=== PATIENT | male | born 1960 | race African-American/Black ===

== ENCOUNTER 2016-08-22 10:57 | Emergency (ER) | payer OTHER ==
[2016-08-22] VITALS (8 sets, daily range): BP systolic 142–178; BP diastolic 83–111; PULSE 64–80; RESP 16–20; TEMP 98.4; O2SAT 73–95
[~2016-08-22] VITALS: Ht 182.9 cm; Wt 109.0 kg
[~2016-08-22 10:57] MED LIST: ACET300T2 PO; AMLO10 PO; AMLO10TA2 PO; ASPI81TA11 PO; COZA50TA PO; FURO1TAB60 PO; LOSA50TA PO; METO-309 PO; METO50TA PO; PRAV40TA PO; PRAV40TA2 PO; SPIR100T PO
--- NOTE | 2016-08-22 11:22 | PD ---
HPI Chief Complaint: Chest Pain Time Seen by Provider: 11:09 Travel History International Travel<30 days: No Contact w/Intl Traveler<30days: No Traveled to known affect area: No History of Present Illness HPI This is a 55-year-old male who presents to the emergency department with chest pain. The patient has a history of hypertrophic cardiomyopathy with an ejection fraction of 18%. He presents today because he was sitting on the couch and had sudden onset of chest discomfort and shortness of breath, constant , moderate severity, associated with some sweating lasting for about 20 minutes and then subsiding. Currently he is not having any discomfort. I saw the patient on August 14 and he was requesting medication refills. I had case management see him and we provided him with some vouchers, however he only filled 2 of his medications and he did not fill his furosemide. He's not been taking this for several days. He did recently have a long hospitalization during which he had an AICD placed and he had a nuclear stress test which was reassuring in July. PFSH Past Medical History Hx Anticoagulant Therapy: Yes Asthma: Yes (childhood, not severe) Autoimmune Disease: No Blood Disorders: No Heart Rhythm Problems: No Cancer: No Cardiac Catheterization: No Cardiovascular Problems: Yes High Cholesterol: Yes Congestive Heart Failure: No Diabetes: No Diminished Hearing: No Endocrine: No Genitourinary: No Heparin Induced Thrombocytopen: No Hypertension: Yes Immune Disorder: No Musculoskeletal: No Neurologic: No Psychiatric: No Reproductive: No Respiratory: Yes Immunizations Current: Yes Myocardial Infarction: No Sickle Cell Disease: No Tetanus Vaccination: Unknown Past Surgical History Abdominal Surgery: No Cardiac Surgery: Yes (DEFIB 07/2016) Coronary Artery Bypass Graft: No Ear Surgery: No Endocrine Surgery: No Eye Surgery: Yes Genitourinary Surgery: No Thoracic Surgery: No Other Surgery: Yes Family History Family Hypercholesterolemia: Yes Social History Alcohol Use: No Tobacco Use: No Substance Use: No Allergies-Medications (Allergen,Severity, Reaction): Coded Allergies: Lisinopril (Verified Allergy, Severe, 08/22/16) Ceclor (Verified Allergy, Unknown, 08/22/16) Levaquin (Verified Adverse Reaction, Unknown, Dizziness, 08/22/16) Reported Meds & Prescriptions Reported Meds & Active Scripts Active Spironolactone 100 Mg Tab 100 Mg PO DAILY Pravachol (Pravastatin) 40 Mg Tab 40 Mg PO DAILY Lopressor (Metoprolol Tartrate) 50 Mg Tab 50 Mg PO BID Cozaar (Losartan Potassium) 50 Mg Tab 100 Mg PO DAILY Lasix (Furosemide) 40 Mg Tab 40 Mg PO DAILY Norvasc (Amlodipine Besylate) 10 Mg Tab 10 Mg PO DAILY Aspirin EC (Aspirin) 81 Mg Tabdr 81 Mg PO DAILY Review of Systems Except as stated in HPI: all other systems reviewed are Neg Physical Exam Narrative GENERAL:Well appearing, no acute distress SKIN: Warm and dry. HEAD: Atraumatic. Normocephalic. EYES: Pupils equal and round. No injection or drainage. ENT: Moist mucous membranes NECK: Trachea midline. CARDIOVASCULAR: Regular rate and rhythm. No murmur appreciated. 3+ bilateral lower extremity edema. RESPIRATORY: Clear to auscultation. Breath sounds equal bilaterally. GASTROINTESTINAL: Abdomen soft, non-tender, nondistended. MUSCULOSKELETAL: No obvious deformities. NEUROLOGICAL: Awake and alert. No obvious cranial nerve deficits. Moving all extremities. PSYCHIATRIC: Appropriate mood and affect; insight and judgment normal. Data Data Last Documented VS Vital Signs Date Time Temp Pulse Resp B/P Pulse Ox O2 Delivery O2 Flow Rate FiO2 08/22/16 12:06 74 20 154/83 94 Nasal Cannula 2 08/22/16 10:59 98.4 Orders Electrocardiogram (08/22/16 ) Basic Metabolic Panel (Bmp) (08/22/16 11:18) B-Type Natriuretic Peptide (08/22/16 11:18) Complete Blood Count With Diff (08/22/16 11:18) Troponin I (08/22/16 11:18) Chest, Single Ap (08/22/16 11:18) Ecg Monitoring (08/22/16 11:18) Bilateral Bp Monitoring (08/22/16 11:18) Iv Access Insert/Monitor (08/22/16 11:18) Oximetry (08/22/16 11:18) Oxygen Administration (08/22/16 11:18) Aspirin Chew (Aspirin Chew) (08/22/16 11:30) Sodium Chloride 0.9% Flush (Ns Flush) (08/22/16 11:30) Furosemide Inj (Lasix Inj) (08/22/16 11:30) Troponin I (08/22/16 14:14) Labs Laboratory Tests Test 08/22/16 08/22/16 11:20 14:20 White Blood Count 8.5 TH/MM3 Red Blood Count 5.39 MIL/MM3 Hemoglobin 15.3 GM/DL Hematocrit 44.7 % Mean Corpuscular Volume 82.9 FL Mean Corpuscular Hemoglobin 28.4 PG Mean Corpuscular Hemoglobin 34.2 % Concent Red Cell Distribution Width 13.0 % Platelet Count 178 TH/MM3 Mean Platelet Volume 10.1 FL Neutrophils (%) (Auto) 60.0 % Lymphocytes (%) (Auto) 20.9 % Monocytes (%) (Auto) 7.3 % Eosinophils (%) (Auto) 10.7 % Basophils (%) (Auto) 1.1 % Neutrophils # (Auto) 5.1 TH/MM3 Lymphocytes # (Auto) 1.8 TH/MM3 Monocytes # (Auto) 0.6 TH/MM3 Eosinophils # (Auto) 0.9 TH/MM3 Basophils # (Auto) 0.1 TH/MM3 CBC Comment DIFF FINAL Differential Comment Sodium Level 140 MEQ/L Potassium Level 4.1 MEQ/L Chloride Level 103 MEQ/L Carbon Dioxide Level 30.9 MEQ/L Anion Gap 6 MEQ/L Blood Urea Nitrogen 11 MG/DL Creatinine 0.97 MG/DL Estimat Glomerular Filtration 97 ML/MIN Rate Random Glucose 123 MG/DL Calcium Level 8.9 MG/DL Troponin I LESS THAN 0.02 0.02 NG/ML NG/ML B-Type Natriuretic Peptide 104 PG/ML [facility] Medical Decision Making Medical Screen Exam Complete: Yes Emergency Medical Condition: Yes Medical Record Reviewed: Yes (patient was recently hospitalized in July and had an AICD placed and had a normal nuclear stress test) Interpretation(s) EKG: ST depressions in the inferior leads and T-wave inversions in the lateral leads similar to prior EKG No leukocytosis Electrolytes are reassuring BNP is 104 Troponin is less than 0.02 and 0.02 Chest x-ray: No acute process Differential Diagnosis nSTEMI, STEMI, congestive heart failure, hypertensive urgency Narrative Course This is a 55-year-old male who presents to the emergency department with chest pain. He recently had a nuclear stress test which was reassuring. He's been noncompliant with his medications. He was placed on a monitor and an IV was established. EKG is similar to prior. Labs demonstrate two normal troponin readings 3 hours apart. In light of the patient's recent provocative testing I think the patient can be discharged home. I suspect his chest pain is in the setting of medication noncompliance, I think he needs to reinitiate his blood pressure medications and his Lasix. I reinforced this and patient was discharged home. Diagnosis Primary Impression: CHEST PAIN NOS Additional Impression: Noncompliance Patient Instructions: General Instructions Additional Instructions: If you develop severe chest pain, shortness of breath, sweating, lightheadedness , dizziness or difficulty breathing return to the emergency department immediately. Followup with your primary care physician in 2-3 days if your symptoms are not resolved. Med/Other Pt SpecificInfo: No Change to Meds Disposition: 01 DISCHARGE HOME Condition: Stable Vita Rodriguez MD Aug 22, 2016 11:22
[2016-08-22] MEDS ORDERED: SODIUM CHLORIDE 0.9% FLUSH 5 ML FLUSH IVF PRN (11:30)
[2016-08-22] MEDS ORDERED: FUROSEMIDE 40 MG/4 ML VIAL IV PUSH ONE (11:30)
[2016-08-22] MEDS ORDERED: ASPIRIN 81 MG CHEW TAB PO ONE (11:30)
[2016-08-22 11:44] LABS: AUTOMATED NEUTROPHIL # 5.1 TH/MM3 (1.8-7.7); BASOPHIL # 0.1 TH/MM3 (0-0.2); BASOPHIL % 1.1 % (0.0-2.0); EOSINOPHIL # 0.9 TH/MM3 (0-0.4); EOSINOPHIL % 10.7 % (0.0-4.0); HEMATOCRIT 44.7 % (39.0-51.0); HEMO FLAGS DIFF FINAL; LYMPH % 20.9 % (9.0-44.0); LYMPHOCYTE # 1.8 TH/MM3 (1.0-4.8); MEAN CELL VOLUME 82.9 FL (80.0-100.0); MEAN CORPUSCULAR HEMOGLOBIN 28.4 PG (27.0-34.0); MEAN CORPUSCULAR HGB CONC 34.2 % (32.0-36.0); MONO % 7.3 % (0.0-8.0); PLATELET COUNT 178 TH/MM3 (150-450); RED BLOOD COUNT 5.39 MIL/MM3 (4.50-5.90); WHITE BLOOD COUNT 8.5 TH/MM3 (4.0-11.0)
[2016-08-22 12:07] LABS: ANION GAP 6 MEQ/L (5-15); BICARBONATE 30.9 MEQ/L (21.0-32.0); BLOOD UREA NITROGEN 11 MG/DL (7-18); CHLORIDE 103 MEQ/L (98-107); GLOMERULAR FILTRATION RATE 97 ML/MIN (>89); POTASSIUM 4.1 MEQ/L (3.5-5.1); SODIUM (NA) 140 MEQ/L (136-145)
--- NOTE | 2016-08-22 12:30 | RADRPT ---
EXAM DATE/TIME: 08/22/2016 11:57 [facility] COMPARISON: No previous studies available for comparison. INDICATIONS : Chest pains with shortness of breath. MEDICAL HISTORY : Myocardial infarction. SURGICAL HISTORY : Pacemaker. ENCOUNTER: Initial ACUITY: 1 day PAIN SCORE: 8/10 LOCATION: Bilateral chest FINDINGS: A single view of the chest demonstrates the lungs to be symmetrically aerated without evidence of mas s, infiltrate or effusion. The cardiomediastinal contours are unremarkable. Osseous structures are intact. Single lead pacer again noted. CONCLUSION: No acute disease. Eliezer Arzate MD on August 22, 2016 at 12:29 Board Certified Radiologist. This report was verified electronically.
--- NOTE | 2016-08-22 17:55 | EKG ---
Date Performed: 08/22/2016 Time Performed: 11:13:20 PTAGE: 55 years EKG: Sinus rhythm MODERATE T-WAVE ABNORMALITY, CONSIDER LATERAL ISCHEMIA MODERATE T-WAVE ABNORMALITY, CONSIDER INFERIO R ISCHEMIA Since previous tracing, no significant change noted ABNORMAL ECG PREVIOUS TRACING : 07/08/2016 15.59 DOCTOR: Urvashi Fernandez Interpretating Date/Time 08/22/2016 17:59:31
== END 2016-08-22 17:04 | disposition home or self-care (01) ==
LOC: NEPC 10:57
DX: R07.9 Chest pain, unspecified (principal); R94.31 Abnormal electrocardiogram [ECG] [EKG]; E78.00 Pure hypercholesterolemia, unspecified; I10 Essential (primary) hypertension; Z91.14 Patient's other noncompliance with medication regimen; Z79.01 Long term (current) use of anticoagulants
CPT/HCPCS: 71010; 80048; 83880; 84484; 85025; 93005; 96374; 99285; J1940

== ENCOUNTER 2017-01-14 08:23 | Emergency (ER) | payer OTHER ==
[~2017-01-14] VITALS: Ht 180.3 cm; Wt 107.0 kg
[~2017-01-14 08:23] MED LIST changes: -ACET300T2 PO; -AMLO10TA2 PO; -LOSA50TA PO; -METO50TA PO; -PRAV40TA2 PO
[2017-01-14 08:26] VITALS: BP 213/136; PULSE 80; RESP 16; TEMP 98.2; O2SAT 99
[2017-01-14] MEDS ORDERED: INDO50CA PO (08:43)
[2017-01-14] MEDS ORDERED: FURO40TA PO ×2 (08:43→08:58)
[2017-01-14] MEDS ORDERED: AMLO10 PO (08:58)
[2017-01-14] MEDS ORDERED: METO-309 PO (08:58)
[2017-01-14] MEDS ORDERED: PRAV40TA PO (08:58)
[2017-01-14] MEDS ORDERED: cloNIDine HCL 0.2 MG TAB PO ONE (09:00)
--- NOTE | 2017-01-14 09:05 | PD ---
HPI Chief Complaint: Hypertension Time Seen by Provider: 08:47 Travel History International Travel<30 days: No Contact w/Intl Traveler<30days: No Traveled to known affect area: No History of Present Illness HPI This patient's noted that he is had difficulty controlling his blood pressure the last few days because he ran out of his blood pressure medications about one week ago. He is not having any chest pain or headache. Symptoms severity is mild. He has history of hypertrophic cardiomyopathy. PFSH Past Medical History Hx Anticoagulant Therapy: Yes Asthma: Yes (childhood, not severe) Autoimmune Disease: No Blood Disorders: No Heart Rhythm Problems: No Cancer: No Cardiac Catheterization: No Cardiovascular Problems: Yes (HTN, ) High Cholesterol: Yes Congestive Heart Failure: No Diabetes: No Diminished Hearing: No Endocrine: No Genitourinary: No Heparin Induced Thrombocytopen: No Hypertension: Yes Immune Disorder: No Musculoskeletal: No Neurologic: No Psychiatric: No Reproductive: No Respiratory: Yes Immunizations Current: Yes Myocardial Infarction: No Sickle Cell Disease: No Past Surgical History Abdominal Surgery: No Cardiac Surgery: Yes (DEFIB 07/2016) Coronary Artery Bypass Graft: No Ear Surgery: No Endocrine Surgery: No Eye Surgery: Yes Genitourinary Surgery: No Thoracic Surgery: No Other Surgery: Yes Family History Family Hypercholesterolemia: Yes Social History Alcohol Use: No Tobacco Use: No Substance Use: No Allergies-Medications (Allergen,Severity, Reaction): Coded Allergies: Lisinopril (Verified Allergy, Severe, 01/14/17) Ceclor (Verified Allergy, Unknown, 01/14/17) Levaquin (Verified Adverse Reaction, Unknown, Dizziness, 01/14/17) Reported Meds & Prescriptions Reported Meds & Active Scripts Active Furosemide 40 Mg Tab 40 Mg PO DAILY Pravachol (Pravastatin) 40 Mg Tab 40 Mg PO DAILY Lopressor (Metoprolol Tartrate) 50 Mg Tab 50 Mg PO BID Norvasc (Amlodipine Besylate) 10 Mg Tab 10 Mg PO DAILY Reported Indomethacin 50 Mg Cap 50 Mg PO DAILY Take with food, milk, or antacids to decrease stomach adverse effects. Review of Systems General / Constitutional: No: Fever HENT: No: Headaches Cardiovascular: No: Chest Pain or Discomfort Respiratory: No: Cough Physical Exam Narrative CARDIOVASCULAR: Regular rate and rhythm without murmur. Extremities showed no edema or varicosities. RESPIRATORY: Respiratory effort unlabored, no retractions or use of accessory muscles. Breath sounds are clear and symmetric. GASTROINTESTINAL: Abdomen soft, non-tender, nondistended. Positive bowel sounds. No hepato-splenomegaly, or palpable masses. No guarding. Data Data Last Documented VS Vital Signs Date Time Temp Pulse Resp B/P Pulse Ox O2 Delivery O2 Flow Rate FiO2 01/14/17 09:54 196/117 01/14/17 08:26 98.2 80 16 99 Orders Clonidine (Catapres) (01/14/17 09:00) [facility] Medical Decision Making Medical Screen Exam Complete: Yes Emergency Medical Condition: Yes Medical Record Reviewed: Yes Differential Diagnosis Hypertensive urgency, accelerated hypertension, noncompliance Narrative Course I have reviewed the patient's electronic medical record. Patient had a reassuring stress test of his heart July 2016 Patient is clinically doing well without any acute symptoms Blood pressure 201/136 I gave him a dose of clonidine I am refilling his medications for one month We will check and record his blood pressure daily Repeat blood pressure is 190/117 Diagnosis Primary Impression: Accelerated hypertension Additional Impression: Medication refill Additional Instructions: The patient was advised to follow up with their physician and return if they worsen. Check and record blood pressure daily Med/Other Pt SpecificInfo: Prescription(s) given Scripts Furosemide 40 Mg Tab40 Mg PO DAILY #30 TAB Ref 0 Prov:Benjamin Mejia MD 01/14/17 Pravastatin (Pravachol)40 Mg Tab40 Mg PO DAILY #30 TAB Ref 2 Prov:Benjamin Mejia MD 01/14/17 Metoprolol Tartrate (Lopressor)50 Mg Tab50 Mg PO BID #60 TAB Ref 2 Prov:Benjamin Mejia MD 01/14/17 Amlodipine (Norvasc)10 Mg Tab10 Mg PO DAILY #30 TAB Ref 2 Prov:Benjamin Mejia MD 01/14/17 Disposition: 01 DISCHARGE HOME Condition: Stable Benjamin Mejia MD January 14, 2017 09:05
[2017-01-14 09:54] VITALS: BP 196/117
== END 2017-01-14 10:21 | disposition home or self-care (01) ==
LOC: NEPC 08:23
DX: I10 Essential (primary) hypertension (principal); Z76.0 Encounter for issue of repeat prescription
CPT/HCPCS: 99284

== ENCOUNTER 2017-04-23 20:10 | Emergency (ER) | payer OTHER ==
[~2017-04-23] VITALS: Ht 175.3 cm; Wt 109.1 kg
[~2017-04-23 20:10] MED LIST changes: -ASPI81TA11 PO; -COZA50TA PO; -FURO1TAB60 PO; +FURO40TA PO; +INDO50CA PO; -SPIR100T PO
[2017-04-23 20:12] VITALS: BP 176/105; PULSE 84; RESP 16; TEMP 98.5; O2SAT 96
--- NOTE | 2017-04-23 20:40 | PD ---
Physical Exam Date Seen by Provider: Apr 23, 2017 Time Seen by Provider: 20:37 Narrative Pt is a 56 year old male presenting for medication refill. Pt states he is out of his BP medication and his blood pressure has been high. Pt c/o headache and dizziness. Pt states he does not have a headache now. VSS, awaiting bed placement. Data Data Last Documented VS Vital Signs Date Time Temp Pulse Resp B/P (MAP) Pulse Ox O2 Delivery O2 Flow Rate FiO2 04/23/17 20:12 98.5 84 16 176/105 (128) 96 Room Air MDM Supervised Visit with LEONARDO: Marian Gomez Apr 23, 2017 20:40
[2017-04-23] MEDS ORDERED: METO50TA PO (21:48)
[2017-04-23] MEDS ORDERED: PRAV40TA2 PO (21:48)
[2017-04-23] MEDS ORDERED: AMLO10TA2 PO (21:48)
--- NOTE | 2017-04-23 21:48 | PD ---
HPI Chief Complaint: Hypertension Time Seen by Provider: 21:35 Travel History International Travel<30 days: No Contact w/Intl Traveler<30days: No Traveled to known affect area: No History of Present Illness HPI This is a 56-year-old male who presents to the emergency department with high blood pressure. He says he's been out of his blood pressure medications. He noticed that he was getting a headache and back of his neck yesterday. Currently it is gone. His symptoms are mild, constant, with no associated vomiting, numbness, weakness, difficulty walking or difficulty talking. He says he is changing jobs and is supposed to get insurance in a primary care physician in one month. He denies any other symptoms. PFSH Past Medical History Hx Anticoagulant Therapy: Yes Asthma: Yes (childhood, not severe) Autoimmune Disease: No Blood Disorders: No Heart Rhythm Problems: No Cancer: No Cardiac Catheterization: No Cardiovascular Problems: Yes (HTN, ) High Cholesterol: Yes Congestive Heart Failure: No Diabetes: No Diminished Hearing: No Endocrine: No Genitourinary: No Heparin Induced Thrombocytopen: No Hypertension: Yes Immune Disorder: No Musculoskeletal: No Neurologic: No Psychiatric: No Reproductive: No Respiratory: Yes Immunizations Current: Yes Myocardial Infarction: No Sickle Cell Disease: No Tetanus Vaccination: > 5 Years Past Surgical History Abdominal Surgery: No Cardiac Surgery: Yes (DEFIB 07/2016) Coronary Artery Bypass Graft: No Ear Surgery: No Endocrine Surgery: No Eye Surgery: Yes Genitourinary Surgery: No Thoracic Surgery: No Other Surgery: Yes Family History Family Hypercholesterolemia: Yes Social History Alcohol Use: No Tobacco Use: No Substance Use: No Allergies-Medications (Allergen,Severity, Reaction): Coded Allergies: lisinopril (Unverified Allergy, Severe, 04/04/17) cefaclor (Unverified Allergy, Unknown, 04/04/17) levofloxacin (Unverified Adverse Reaction, Unknown, Dizziness, 04/04/17) Reported Meds & Prescriptions Reported Meds & Active Scripts Active Pravachol (Pravastatin) 40 Mg Tab 40 Mg PO DAILY Lopressor (Metoprolol Tartrate) 50 Mg Tab 50 Mg PO BID Norvasc (Amlodipine Besylate) 10 Mg Tab 10 Mg PO DAILY Review of Systems Except as stated in HPI: all other systems reviewed are Neg Physical Exam Narrative GENERAL:Well appearing, no acute distress SKIN: Focused skin assessment warm and dry. HEAD: Atraumatic. Normocephalic. EYES: Pupils equal and round. No injection or drainage. ENT: Moist mucous membranes NECK: Trachea midline. CARDIOVASCULAR: Regular rate and rhythm. No murmur appreciated. RESPIRATORY: Clear to auscultation. Breath sounds equal bilaterally. GASTROINTESTINAL: Abdomen soft, non-tender, nondistended. MUSCULOSKELETAL: No obvious deformities. NEUROLOGICAL: Awake and alert. No obvious cranial nerve deficits. Moving all extremities. PSYCHIATRIC: Appropriate mood and affect; insight and judgment normal. Data Data Last Documented VS Vital Signs Date Time Temp Pulse Resp B/P (MAP) Pulse Ox O2 Delivery O2 Flow Rate FiO2 04/23/17 20:12 98.5 84 16 176/105 (128) 96 Room Air MDM Medical Decision Making Medical Screen Exam Complete: Yes Emergency Medical Condition: Yes Interpretation(s) Afebrile, no tachycardia, hypertensive Differential Diagnosis Hypertension, hypertensive urgency, hypertensive emergency Narrative Course This is a 56 year old male who presents the emergency department with hypertension out of his blood pressure and cholesterol medications. He has a normal neurologic exam and appears well. I don't think this looks hypertensive emergency or hypertensive urgency given his lack of symptoms. Patient will be written for refills on his medication and was given information regarding the [place] [facility]. Diagnosis Primary Impression: Hypertension Qualified Codes: I10 - Essential (primary) hypertension Patient Instructions: General Instructions Additional Instructions: If you develop severe chest pain, shortness of breath, sweating, lightheadedness , dizziness or difficulty breathing return to the emergency department immediately. Med/Other Pt SpecificInfo: Prescription(s) given Scripts Pravastatin (Pravastatin) 40 Mg Tab 40 MG PO DAILY for Cholesterol Management, #30 TAB 2 Refills Prov: Vita Rodriguez MD 04/23/17 Metoprolol Tartrate (Metoprolol Tartrate) 50 Mg Tab 50 MG PO BID, #60 TAB 2 Refills Prov: Vita Rodriguez MD 04/23/17 Amlodipine (Amlodipine) 10 Mg Tab 10 MG PO DAILY for Blood Pressure Management, #30 TAB 2 Refills Prov: Vita Rodriguez MD 04/23/17 Disposition: 01 DISCHARGE HOME Condition: Stable Vita Rodriguez MD Apr 23, 2017 21:48
== END 2017-04-23 22:27 | disposition home or self-care (01) ==
LOC: NEPD 20:10
DX: I10 Essential (primary) hypertension (principal); R51 Headache; M54.2 Cervicalgia; J45.909 Unspecified asthma, uncomplicated; E78.00 Pure hypercholesterolemia, unspecified; Z79.899 Other long term (current) drug therapy; Z88.8 Allergy status to other drugs, medicaments and biological substances
CPT/HCPCS: 99281